=== PATIENT | female | born 1940 | race Caucasian/White ===

== ENCOUNTER → 2016-12-20 | Outpatient (CLI) | payer OTHER | LOC: KOH-I 08:28 | DX: R10.13 Epigastric pain (principal); R63.4 Abnormal weight loss; K59.00 Constipation, unspecified; N13.30 Unspecified hydronephrosis | CPT/HCPCS: 71260; 74177; Q9962 ==

== ENCOUNTER → 2017-01-01 | Outpatient (CLI) | payer OTHER | LOC: RT 16:24 | DX: I25.10 Atherosclerotic heart disease of native coronary artery without angina pectoris (principal) | CPT/HCPCS: 93005 ==

== ENCOUNTER → 2022-03-09 | Outpatient (CLI) | payer OTHER ==
[~2022-03-09] MED LIST: ASPIRIN CHEWABL81 MG PO; CALTRATE 600 +1 EAC1 PO; GLUCOPHAGE500 MG PO; LOPRESSOR50 MG PO; NORCO 5-325 TA1 EACH PO; OMEPRAZOLE20 MG PO; ZOCOR20 MG PO
== END ==
LOC: US 13:06
DX: I65.23 Occlusion and stenosis of bilateral carotid arteries (principal); I73.89 Other specified peripheral vascular diseases; I25.10 Atherosclerotic heart disease of native coronary artery without angina pectoris
CPT/HCPCS: 93880; 93925

== ENCOUNTER → 2022-04-10 | Outpatient (CLI) | payer OTHER | LOC: CT 08:00 | DX: E11.9 Type 2 diabetes mellitus without complications (principal); I10 Essential (primary) hypertension; I73.89 Other specified peripheral vascular diseases | CPT/HCPCS: 36415; 82565; 84520; Q9967 ==